=== PATIENT | female | born 1965 | race Caucasian/White ===

== ENCOUNTER 2017-04-15 18:07 | Emergency (ER) | payer OTHER ==
[~2017-04-15] VITALS: Ht 162.6 cm; Wt 70.3 kg
[~2017-04-15 18:07] MED LIST: BACTRIM DS TAB1 EAC1 PO; HUMIRA20 MG/0.4; HYDROCODONE-AP1 EAC6 PO; HYDROCODONE-APA1 TA1 PO; MEDROLDOSEPACK PO; METHOTREXATE 22.5 M1; NORCO 5-325 TA1 EAC1 PO; NORCO 5-325 TA1 EACH PO; PERCOCET 5-3251 EACH PO; PROAIR HFA8.5 GM INH; PROMETHAZINE HC25 M1 PO; ROBAXIN 750 MG750 M1 PO; SINGULAIR 10 MG10 M1 PO; SYNTHROID175 MCG PO; VICODIN 5-5001 EACH; ZOFRAN ODT4 MG PO; ZOFRAN4 MG PO; [UNRECOGNIZED DRUG - OTHER]
[2017-04-15] MEDS ORDERED: XELJANZ XR11 MG PO (18:12)
[2017-04-15 19:39] LABS: ABSOLUTE EOSINOPHILS 0.1 thou/uL (0.0-0.7); ABSOLUTE LYMPHOCYTES 1.3 thou/uL (0.8-5.3); ABSOLUTE MONOCYTES 0.7 thou/uL (0.0-1.2); ABSOLUTE NEUTROPHILS 3.4 thou/uL (1.6-8.1); BASOPHILS 0.5 %; EOSINOPHILS 2.6 %; HEMATOCRIT 41.5 % (37.0-47.0); HEMOGLOBIN 13.9 gm/dL (12.0-15.0); LYMPHOCYTES 22.4 %; MCH 31.4 pg (26.0-34.0); MCHC 33.4 g/dL (28.0-37.0); MCV 93.9 fL (80.0-100.0); MPV 9.3 fl. (7.2-11.1); NUCLEATED RBCS 0 /100WBC; PLATELET COUNT* 158 thou/uL (150-400); POLYS 61.5 %; RBC 4.42 mil/uL (4.20-5.00); WBC 5.6 thou/uL (4.0-11.0)
[2017-04-15 19:42] LABS: URINE BILIRUBIN NEGATIVE (Negative); URINE BLOOD NEGATIVE (Negative); URINE CLARITY CLEAR; URINE COLOR YELLOW; URINE GLUCOSE-RANDOM NEGATIVE (Negative); URINE KETONES NEGATIVE (Negative); URINE LEUKOCYTES-REFLEX NEGATIVE (Negative); URINE NITRITE-REFLEX NEGATIVE (Negative); URINE PROTEIN NEGATIVE (Negative); URINE SPECIFIC GRAVITY >= 1.030 (1.005-1.030); URINE UROBILINOGEN 0.2 E.U./dl (0.2-1.0)
[2017-04-15 19:49] LABS: CALCIUM 8.7 mg/dL (8.5-10.1); CREATININE 0.8 mg/dL (0.6-1.3); POTASSIUM 3.2 mmol/L (3.5-5.1)
[2017-04-15 19:53] LABS: ALBUMIN 3.3 g/dL (3.4-5.0); TOTAL BILIRUBIN 0.2 mg/dL (<0.1-1.0); TOTAL PROTEIN 7.3 g/dL (6.4-8.2)
[2017-04-15] MEDS ORDERED: TAMIFLU75 MG PO (20:34)
[2017-04-15] MEDS ORDERED: ZOFRAN ODT4 MG PO (20:34)
[2017-04-15 20:46] VITALS: BP 134/76
== END 2017-04-15 20:46 | disposition home or self-care (01) ==
LOC: M.ERS 18:07
PROVIDERS: Physician Assistant
DX: J09.X2 Influenza due to identified novel influenza A virus with other respiratory manifestations (principal); M19.90 Unspecified osteoarthritis, unspecified site; J45.909 Unspecified asthma, uncomplicated; Z90.49 Acquired absence of other specified parts of digestive tract; Z98.890 Other specified postprocedural states; Z96.652 Presence of left artificial knee joint; Z86.14 Personal history of Methicillin resistant Staphylococcus aureus infection; Z88.1 Allergy status to other antibiotic agents; Z91.040 Latex allergy status; Z88.5 Allergy status to narcotic agent; Z91.041 Radiographic dye allergy status

== ENCOUNTER 2017-06-08 13:12 | Emergency (ER) | payer OTHER ==
[~2017-06-08] VITALS: Ht 162.6 cm; Wt 70.3 kg
[~2017-06-08 13:12] MED LIST changes: +TAMIFLU75 MG PO; +XELJANZ XR11 MG PO
[2017-06-08] MEDS ORDERED: [UNRECOGNIZED DRUG - OTHER] (13:21)
[2017-06-08 13:42] LABS: ABSOLUTE EOSINOPHILS 0.1 thou/uL (0.0-0.7); ABSOLUTE LYMPHOCYTES 1.9 thou/uL (0.8-5.3); ABSOLUTE MONOCYTES 0.5 thou/uL (0.0-1.2); ABSOLUTE NEUTROPHILS 1.6 thou/uL (1.6-8.1); BASOPHILS 0.9 %; EOSINOPHILS 2.7 %; HEMATOCRIT 42.4 % (37.0-47.0); HEMOGLOBIN 13.9 gm/dL (12.0-15.0); LYMPHOCYTES 45.4 %; MCH 30.8 pg (26.0-34.0); MCHC 32.9 g/dL (28.0-37.0); MCV 93.6 fL (80.0-100.0); MONOCYTES 12.8 %; MPV 8.8 fl. (7.2-11.1); NUCLEATED RBCS 0 /100WBC; PLATELET COUNT* 166 thou/uL (150-400); POLYS 38.2 %; RBC 4.54 mil/uL (4.20-5.00); RDW-CV 13.1 % (10.5-14.5); WBC 4.3 thou/uL (4.0-11.0)
[2017-06-08 13:57] LABS: APTT 23.9 Seconds (25.0-31.3); PROTIME 9.9 Seconds (9.20-11.50)
[2017-06-08 14:10] LABS: ANION GAP 9 mmol/L (7-16); BUN 10 mg/dL (7-18); CALCIUM 8.6 mg/dL (8.5-10.1); CHLORIDE 105 mmol/L (98-107); CO2 26 mmol/L (21-32); GLUCOSE 105 mg/dL (70-99); POTASSIUM 4.1 mmol/L (3.5-5.1); SODIUM 140 mmol/L (136-145)
[2017-06-08 14:17] LABS: ALBUMIN 3.1 g/dL (3.4-5.0); ALKALINE PHOSPHATASE 67 U/L (46-116); LIPASE 127 U/L (73-393); SGOT 26 U/L (15-37); SGPT 26 U/L (30-65); TOTAL BILIRUBIN 0.3 mg/dL (<0.1-1.0); TOTAL PROTEIN 6.8 g/dL (6.4-8.2); TROPONIN-I LEVEL <0.06 ng/mL (<0.06)
--- NOTE | 2017-06-08 15:23 | EKG ---
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: Wen GENAO : 1965 Requested By: Jazzy Galvez Order Number: [id number] MD: Satish Vee Measurements Intervals [place] Rate: 80 P: 24 [place]: 124 QRS: 20 QRSD: 97 T: 27 QT: 386 QTc: 446 Interpretive Statements Sinus rhythm RSR' in V1 or V2, right VCD or RVH Compared to ECG 02/10/2007 09:07:44 Right ventricular hypertrophy now present RSR' in V1 or V2 now present Sinus tachycardia no longer present Electronically Signed On 06-08-2017 15:22:57 CDT by Satish Vee [email or web address] <ELECTRONICALLY SIGNED> By: Satish Vee MD, [facility] 06/08/17 1522 1327 1327 Satish Vee MD, [facility] /EPI
[2017-06-08] MEDS ORDERED: NAPROSYN500 MG PO (15:52)
[2017-06-08 16:14] VITALS: BP 125/81
== END 2017-06-08 16:16 | disposition home or self-care (01) ==
LOC: M.ERS 13:12
PROVIDERS: Nurse Practitioner Family
DX: S93.491A Sprain of other ligament of right ankle, initial encounter (principal); R07.9 Chest pain, unspecified; M06.9 Rheumatoid arthritis, unspecified; J45.909 Unspecified asthma, uncomplicated; Z96.652 Presence of left artificial knee joint; Z86.14 Personal history of Methicillin resistant Staphylococcus aureus infection; Z88.1 Allergy status to other antibiotic agents; Z91.040 Latex allergy status; Z88.5 Allergy status to narcotic agent; Z91.013 Allergy to seafood; X50.1XXA Overexertion from prolonged static or awkward postures, initial encounter; Y93.89 Activity, other specified; Y92.89 Other specified places as the place of occurrence of the external cause; Y99.8 Other external cause status

== ENCOUNTER 2019-03-22 20:21 | Emergency (ER) | payer OTHER ==
[~2019-03-22] VITALS: Ht 162.6 cm; Wt 86.2 kg
[~2019-03-22 20:21] MED LIST changes: +NAPROSYN500 MG PO; +[UNRECOGNIZED DRUG - OTHER]
[2019-03-22] MEDS ORDERED: LEVO-T100 MCG PO (20:41)
[2019-03-22] MEDS ORDERED: LEXAPRO20 MG PO (20:41)
[2019-03-22] MEDS ORDERED: METHOTREXATE 22.5 M1 INJECTION (20:42)
[2019-03-22 21:58] LABS: ABSOLUTE BASOPHILS 0.1 thou/uL (0.0-0.2); ABSOLUTE EOSINOPHILS 0.1 thou/uL (0.0-0.7); ABSOLUTE LYMPHOCYTES 2.9 thou/uL (0.8-5.3); ABSOLUTE MONOCYTES 0.5 thou/uL (0.0-1.2); ABSOLUTE NEUTROPHILS 5.5 thou/uL (1.6-8.1); BASOPHILS 1.3 %; EOSINOPHILS 1.5 %; HEMATOCRIT 40.2 % (37.0-47.0); HEMOGLOBIN 13.6 gm/dL (12.0-15.0); LYMPHOCYTES 31.1 %; MCH 31.2 pg (26.0-34.0); MCHC 33.8 g/dL (28.0-37.0); MCV 92.3 fL (80.0-100.0); MONOCYTES 5.7 %; MPV 8.7 fl. (7.2-11.1); NUCLEATED RBCS 0 /100WBC; PLATELET COUNT* 242 thou/uL (150-400); POLYS 60.4 %; RBC 4.36 mil/uL (4.20-5.00); RDW-CV 14.2 % (10.5-14.5); WBC 9.2 thou/uL (4.0-11.0)
[2019-03-22 22:09] LABS: CALCIUM 8.6 mg/dL (8.5-10.1)
[2019-03-22 22:20] LABS: ALBUMIN 3.3 g/dL (3.4-5.0); TOTAL BILIRUBIN 0.1 mg/dL (<0.1-1.0); TOTAL PROTEIN 7.3 g/dL (6.4-8.2)
[2019-03-22 22:32] LABS: APTT 23.2 Seconds (25.0-31.3); PROTIME 10.1 Seconds (9.20-11.50)
[2019-03-23 00:48] VITALS: BP 122/86
--- NOTE | 2019-03-23 10:22 | EKG ---
[place] [address] ELECTROCARDIOGRAM REPORT Name: ELI GALLEGOS Room: 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: : 1965 Requested By: Vera Agarwal Order Number: [id number] MD: Satish Vee Measurements Intervals [place] Rate: 77 P: 30 [place]: 148 QRS: 2 QRSD: 105 T: -2 QT: 413 QTc: 468 Interpretive Statements Sinus rhythm Low voltage, precordial leads Abnormal R-wave progression, early transition Probable left ventricular hypertrophy Borderline T abnormalities, diffuse leads Compared to ECG 06/08/2017 13:27:15 Low QRS voltage now present Electronically Signed On 03-23-2019 10:21:22 [employer] by Satish Vee [email or web address] <ELECTRONICALLY SIGNED> By: Satish Vee MD, [facility] 03/23/19 1021 20 20 Satish Vee MD, [facility] /EPI
== END 2019-03-23 00:48 | disposition home or self-care (01) ==
LOC: M.ERS 20:21
PROVIDERS: Nurse Practitioner Family
DX: R06.02 Shortness of breath (principal); M25.572 Pain in left ankle and joints of left foot; F41.9 Anxiety disorder, unspecified

== ENCOUNTER 2019-04-06 02:45 | Emergency (ER) | payer OTHER ==
[~2019-04-06] VITALS: Ht 162.6 cm; Wt 86.2 kg
[~2019-04-06 02:45] MED LIST changes: +LEVO-T100 MCG PO; +LEXAPRO20 MG PO; +METHOTREXATE 22.5 M1 INJECTION
[2019-04-06] MEDS ORDERED: SINGULAIR 10 MG10 M1 PO (03:02)
[2019-04-06 03:21] LABS: URINE BILIRUBIN NEGATIVE (Negative); URINE BLOOD NEGATIVE (Negative); URINE CLARITY CLEAR; URINE COLOR YELLOW; URINE GLUCOSE-RANDOM NEGATIVE (Negative); URINE KETONES NEGATIVE (Negative); URINE LEUKOCYTES-REFLEX NEGATIVE (Negative); URINE NITRITE-REFLEX NEGATIVE (Negative); URINE PROTEIN NEGATIVE (Negative); URINE UROBILINOGEN 0.2 E.U./dl (0.2-1.0)
[2019-04-06 03:29] LABS: AMP/METHAMP Negative (Negative); BARBITURATES Negative (Negative); BENZODIAZEPINES POSITIVE (Negative); COCAINE Negative (Negative); METHADONE Negative (Negative); OPIATES Negative (Negative); PCP Negative (Negative); THC Negative (Negative)
[2019-04-06 04:18] LABS: ABSOLUTE LYMPHOCYTES 1.1 thou/uL (0.8-5.3); ABSOLUTE MONOCYTES 0.3 thou/uL (0.0-1.2); ABSOLUTE NEUTROPHILS 7.4 thou/uL (1.6-8.1); BASOPHILS 0.5 %; HEMOGLOBIN 12.4 gm/dL (12.0-15.0); LYMPHOCYTES 12.4 %; MCH 31.2 pg (26.0-34.0); MCHC 33.5 g/dL (28.0-37.0); MCV 93.2 fL (80.0-100.0); MONOCYTES 3.7 %; MPV 9.2 fl. (7.2-11.1); NUCLEATED RBCS 0 /100WBC; PLATELET COUNT* 218 thou/uL (150-400); POLYS 83.4 %; RBC 3.97 mil/uL (4.20-5.00); RDW-CV 14.8 % (10.5-14.5); WBC 8.9 thou/uL (4.0-11.0)
[2019-04-06 04:34] LABS: ALBUMIN 2.8 g/dL (3.4-5.0); CREATININE 0.9 mg/dL (0.6-1.3); TOTAL BILIRUBIN 0.2 mg/dL (<0.1-1.0); TOTAL PROTEIN 6.5 g/dL (6.4-8.2)
[2019-04-06 04:52] LABS: CALCIUM 7.7 mg/dL (8.5-10.1)
[2019-04-06 05:17] LABS: SALICYLATE < 2.8 mg/dL (2.8-20.0)
[2019-04-06 05:24] LABS: ACETAMINOPHEN < 2 ug/mL (10-30); ALCOHOL < 10 mg/dL (<10)
[2019-04-06 16:32] VITALS: BP 123/79
== END 2019-04-06 16:32 ==
LOC: M.ERS 02:45
PROVIDERS: Emergency Medicine
DX: T42.4X1A Poisoning by benzodiazepines, accidental (unintentional), initial encounter (principal); T40.4X1A Poisoning by other synthetic narcotics, accidental (unintentional), initial encounter; T39.391A Poisoning by other nonsteroidal anti-inflammatory drugs [NSAID], accidental (unintentional), initial encounter; T43.221A Poisoning by selective serotonin reuptake inhibitors, accidental (unintentional), initial encounter; R45.851 Suicidal ideations; F41.9 Anxiety disorder, unspecified; F32.9 Major depressive disorder, single episode, unspecified; M06.9 Rheumatoid arthritis, unspecified; J45.909 Unspecified asthma, uncomplicated; Z90.49 Acquired absence of other specified parts of digestive tract; Z98.890 Other specified postprocedural states; Z86.14 Personal history of Methicillin resistant Staphylococcus aureus infection; Z91.040 Latex allergy status; Z91.041 Radiographic dye allergy status; Z79.899 Other long term (current) drug therapy; Z88.1 Allergy status to other antibiotic agents; Z88.5 Allergy status to narcotic agent; Z91.013 Allergy to seafood; Z96.652 Presence of left artificial knee joint; Y92.89 Other specified places as the place of occurrence of the external cause